=== PATIENT | female | born 1970 | race Caucasian/White ===

== ENCOUNTER 2016-07-29 20:26 | Emergency (ER) | payer MEDICAID, OTHER ==
[~2016-07-29] VITALS: Ht 160 cm; Wt 63.0 kg
[2016-07-29 20:26] VITALS: BP 123/83; PULSE 71; RESP 17; TEMP 98.2; O2SAT 98
[~2016-07-29 20:26] MED LIST: ALBU17AE26 IH
--- NOTE | 2016-07-29 20:30 | NUR ---
PT. IN BED 7, ASSUMED PT. CARE
--- NOTE | 2016-07-29 20:35 | NUR ---
Pt. to ER AAOx4 states that she has a Hx of CVA c/o chest pain dull radiating to her left arm 07/31, denies SOB, EKG at bedside, denies n/v/d denies headache
--- NOTE | 2016-07-29 20:40 | NUR ---
DR. CERVANTES AT BEDSIDE EXAMINING THE PT.
[2016-07-29 21:00] VITALS: BP 121/72; PULSE 71; RESP 17; TEMP 98.2; O2SAT 98
--- NOTE | 2016-07-29 21:00 | NUR ---
Patient given written and verbal discharge instructions and verbalizes understanding. ER MD Dr. Dove discussed with patient the results and treatment provided. Patient in stable condition. ID arm band removed. Rx of klonopin given. Patient educated on pain management and to follow up with PMD. Pain Scale 0/10 Opportunity for questions provided and answered.
== END 2016-07-29 21:00 | disposition home or self-care (01) ==
LOC: SED 20:26
DX: F41.9 Anxiety disorder, unspecified (principal); J45.909 Unspecified asthma, uncomplicated; Z86.73 Personal history of transient ischemic attack (TIA), and cerebral infarction without residual deficits; Z91.013 Allergy to seafood
CPT/HCPCS: 93005; 99283